=== PATIENT | female | born 1950 | race Caucasian/White ===

== ENCOUNTER 2023-09-10 17:28 | Inpatient (IN) | payer MEDICARE, OTHER ==
[~2023-09-10] VITALS: Ht 162.6 cm; Wt 39.5 kg
[2023-09-10] MEDS ORDERED: LABE100T15 PO (17:49)
[2023-09-10] MEDS ORDERED: AMLO10TA4 PO (17:49)
[2023-09-10] MEDS ORDERED: PANT40TA2 PO (17:49)
[2023-09-10] MEDS ORDERED: MIRT-121 PO (17:49)
[2023-09-10] MEDS ORDERED: DULO60CA45 PO (17:49)
[2023-09-10] MEDS ORDERED: FURO-152 PO (17:49)
[2023-09-10] MEDS ORDERED: ACET-2605 PO (17:49)
[2023-09-10] MEDS ORDERED: ALPR0.5T8 PO (17:49)
[2023-09-10] MEDS: BLOOD SUGAR DIAGNOSTIC 1 EACH STRIP VI ONE (19:45)
[2023-09-10] MEDS ORDERED: MAGNESIUM HYDROXIDE 30 ML LIQUID UDC PO PRN (19:45)
[2023-09-10] MEDS ORDERED: MAG HYDROX/AL HYDROX/SIMETH 30 ML LIQUID UDC PO PRN (19:45)
[2023-09-10] MEDS: LORAZEPAM 0.5 MG TABLET PO PRN (20:42)
[2023-09-10] MEDS: ACETAMINOPHEN 325 MG TABLET PO PRN (20:43)
[2023-09-11 07:59] VITALS: BP 114/71; TEMP 97.8; O2SAT 96
[2023-09-11] MEDS: FUROSEMIDE 20 MG TABLET PO SCH (08:50)
[2023-09-11] MEDS: PANTOPRAZOLE SODIUM 40 MG TABLET.DR PO SCH (08:50)
[2023-09-11] MEDS: AMLODIPINE 10 MG TABLET PO SCH (08:51)
[2023-09-11] MEDS: LABETALOL HCL 200 MG TABLET PO SCH (08:55)
[2023-09-11] MEDS ORDERED: LABETALOL HCL 100 MG TABLET PO SCH (09:00)
[2023-09-11] MEDS: DULOXETINE 30 MG CAPSULE.DR PO SCH (14:08)
[2023-09-11 15:19] VITALS: BP 101/54; TEMP 98; O2SAT 96
[2023-09-11 20:00] VITALS: BP 95/51; TEMP 97.7; O2SAT 97
[2023-09-11] MEDS: MIRTAZAPINE 15 MG TABLET PO SCH (21:17)
[2023-09-12 02:07] VITALS: BP 137/79
[2023-09-12] MEDS: ZOLPIDEM 5 MG TABLET PO PRN (02:11)
[2023-09-12 08:22] VITALS: BP 113/56; TEMP 98.4; O2SAT 98
[2023-09-12] MEDS: ENSURE ENLIVE (VAN) 240 ML LIQUID PO SCH (12:35)
[2023-09-12 17:00] VITALS: BP 128/87; TEMP 98.3; O2SAT 97
[2023-09-12] MEDS: ARGININE/GLUTAMINE/CALCIUM BMB 1 EACH POWD.PACK PO SCH (17:00)
[2023-09-12] MEDS: LORAZEPAM 0.5 MG TABLET PO PRN (21:15)
[2023-09-12 22:42] VITALS: BP 97/53; TEMP 98.1
[2023-09-12 22:45] VITALS: BP 97/53; TEMP 98.1; O2SAT 97
[2023-09-13 08:32] VITALS: BP 126/55; TEMP 98.3; O2SAT 97
[2023-09-13 15:57] VITALS: BP 128/59; TEMP 98.1; O2SAT 98
[2023-09-13] MEDS ORDERED: LORAZEPAM 1 MG TABLET PO PRN (17:00)
[2023-09-13 19:59] VITALS: BP 132/56; TEMP 98.1; O2SAT 96
[2023-09-14 07:43] VITALS: BP 127/65; TEMP 97.8; O2SAT 96
[2023-09-14 15:53] VITALS: BP 155/85; TEMP 98; O2SAT 97
[2023-09-14] MEDS ORDERED: VANCOMYCIN IV 1,000 MG in IV DEXTROSE 5% 250 ML IV SCH (16:15)
[2023-09-14] MEDS ORDERED: CEFTRIAXONE 1 G in IV DEXTROSE 5% 100 ML IV SCH (16:15)
[2023-09-14] MEDS ORDERED: LORA-259 PO (17:30)
[2023-09-14] MEDS ORDERED: VANC1PIG IV (17:30)
[2023-09-14] MEDS ORDERED: CEFT1VIA15 IV (17:30)
[2023-09-14] MEDS ORDERED: DULO30CA2 PO (17:30)
[2023-09-14] MEDS ORDERED: ZOLP5TAB2 PO (17:30)
[2023-09-14] MEDS ORDERED: MIRT-93 PO (17:30)
[2023-09-14 19:43] VITALS: BP 136/71; TEMP 98.1; O2SAT 96
== END 2023-09-14 21:52 | disposition short-term general hospital (02) | DRG 885 ==
LOC: ER 17:37 → GPS 18:30
PROVIDERS: ADMIT Psychiatry & Neurology Psychiatry; ATTEND Internal Medicine
DX: F33.2 Major depressive disorder, recurrent severe without psychotic features (principal); I11.0 Hypertensive heart disease with heart failure; M86.8X7 Other osteomyelitis, ankle and foot; R45.851 Suicidal ideations; F03.93 Unspecified dementia, unspecified severity, with mood disturbance; L97.522 Non-pressure chronic ulcer of other part of left foot with fat layer exposed; G89.4 Chronic pain syndrome; F11.14 Opioid abuse with opioid-induced mood disorder; Z91.81 History of falling; F41.9 Anxiety disorder, unspecified; S92.512A Displaced fracture of proximal phalanx of left lesser toe(s), initial encounter for closed fracture; X58.XXXA Exposure to other specified factors, initial encounter; Y93.9 Activity, unspecified; Y92.89 Other specified places as the place of occurrence of the external cause; L08.9 Local infection of the skin and subcutaneous tissue, unspecified; M62.81 Muscle weakness (generalized); I50.9 Heart failure, unspecified; Z79.899 Other long term (current) drug therapy
CPT/HCPCS: 36415; 70450; 73630; 98960

== ENCOUNTER 2023-09-14 21:53 | Inpatient (IN) | payer MEDICARE, OTHER ==
[~2023-09-14] VITALS: Ht 162.6 cm; Wt 40.8 kg
[~2023-09-14 21:53] MED LIST: ACET-2605 PO; AMLO10TA4 PO; CEFT1VIA15 IV; DULO30CA2 PO; FURO-152 PO; LABE100T15 PO; LORA-259 PO; MIRT-93 PO; PANT40TA2 PO; VANC1PIG IV; ZOLP5TAB2 PO
[2023-09-14 23:00] VITALS: BP 139/72; TEMP 97.7; O2SAT 99
[2023-09-15] MEDS ORDERED: CEFTRIAXONE 1 G VIAL ONE ×2 (00:02→00:03)
[2023-09-15] MEDS ORDERED: VANCOMYCIN 1000 MG VIAL ONE (00:02)
[2023-09-15] MEDS: CEFTRIAXONE 1 G in IV DEXTROSE 5% 50 ML IV ONE (02:49)
[2023-09-15] MEDS: VANCOMYCIN HCL 750 MG in IV DEXTROSE 5% 250 ML IV ONE (04:04)
[2023-09-15 07:01] VITALS: BP 114/60; TEMP 99; O2SAT 95
[2023-09-15] MEDS ORDERED: ONDANSETRON 4 MG/2 ML VIAL IV PRN (08:30)
[2023-09-15] MEDS ORDERED: ZOLPIDEM 5 MG TABLET PO PRN (08:30)
[2023-09-15] MEDS ORDERED: HYDROCODONE/APAP 5-325MG TABLET PO PRN (08:30)
[2023-09-15] MEDS ORDERED: ACETAMINOPHEN 325 MG TABLET PO PRN (08:30)
[2023-09-15 09:00] VITALS: BP 105/57; TEMP 98.5
[2023-09-15] MEDS ORDERED: PANTOPRAZOLE SODIUM 40 MG TABLET.DR PO SCH (09:00)
[2023-09-15 09:10] LABS: BASOPHILS # (AUTO) 0.1 K/UL (0.0-0.2); BASOPHILS % (AUTO) 1.1 % (0.0-2.0); EOSINOPHILS # (AUTO) 0.1 K/uL (0.0-0.7); HEMATOCRIT 35.9 % (31.2-41.9); LYMPHOCYTES # (AUTO) 1.7 K/uL (0.8-4.8); LYMPHOCYTES % (AUTO) 25.9 % (20.5-51.5); MEAN CORPUSCULAR HGB CONC 33 g/dL (32.3-35.6); MEAN CORPUSCULAR VOLUME 89.7 fL (75.5-95.3); MONOCYTES # (AUTO) 0.5 K/uL (0.1-1.30); MONOCYTES % (AUTO) 7.8 % (0.0-11.0); NEUTROPHILS % (AUTO) 63.2 % (38.5-71.5); PLATELET COUNT (AUTO) 363 K/uL (179-408); RED CELL DISTRIBUTION WIDTH 13.6 % (12.3-17.7); WHITE BLOOD COUNT (AUTO) 6.4 K/uL (3.8-11.8)
[2023-09-15 09:11] LABS: DIFFERENTIAL COMMENT 1
[2023-09-15 09:20] LABS: CALCIUM 9.1 mg/dL (8.5-10.1); CREATININE 1.2 mg/dL (0.6-1.3)
[2023-09-15 09:34] LABS: THYROID STIMULATING HORMONE 1.029 mIU/mL (0.358-3.740)
[2023-09-15] MEDS: FUROSEMIDE 20 MG TABLET PO SCH (09:47)
[2023-09-15] MEDS: ZINC SULFATE 220 MG CAPSULE PO SCH (09:48)
[2023-09-15 09:51] LABS: ALBUMIN 3.1 g/dL (3.4-5.0); BILIRUBIN,TOTAL 0.6 mg/dL (0.2-1.0); MAGNESIUM 1.6 mg/dL (1.8-2.4)
[2023-09-15 09:58] LABS: ERYTHROCYTE SEDIMENTATION RATE 59 MM/HR (0-20)
[2023-09-15] MEDS: DULOXETINE 30 MG CAPSULE.DR PO SCH (10:24)
[2023-09-15] MEDS: ASCORBIC ACID 500 MG TABLET PO SCH (10:25)
[2023-09-15] MEDS: LABETALOL HCL 100 MG TABLET PO SCH (10:25)
[2023-09-15] MEDS: ASPIRIN EC 81 MG TABLET.DR PO SCH (10:25)
[2023-09-15] MEDS: AMLODIPINE 10 MG TABLET PO SCH (10:26)
[2023-09-15] MEDS: ENSURE WITH FIBER 237 ML LIQUID (CHOCOLATE) PO SCH (17:23)
[2023-09-15] MEDS: DOCUSATE SODIUM 250 MG CAPSULE PO SCH (21:00)
[2023-09-15] MEDS: MIRTAZAPINE 15 MG TABLET PO SCH (21:00)
[2023-09-15] MEDS: ATORVASTATIN 20 MG TABLET PO SCH (21:00)
[2023-09-15] MEDS ORDERED: VANCOMYCIN IV 1,000 MG in IV DEXTROSE 5% 250 ML IV SCH (23:00)
[2023-09-15] MEDS: CEFTRIAXONE 1 G in IV DEXTROSE 5% 50 ML IV SCH (23:23)
[2023-09-16 06:00] VITALS: BP 117/68; TEMP 98.7
[2023-09-16] MEDS: PANTOPRAZOLE SODIUM 40 MG TABLET.DR PO SCH (09:50)
[2023-09-16] MEDS: CADEXOMER IODINE 40 GM TUBE TOP SCH (11:53)
[2023-09-16] MEDS: LORAZEPAM 1 MG TABLET PO PRN (15:30)
[2023-09-16] MEDS: VANCOMYCIN HCL 750 MG in IV DEXTROSE 5% 250 ML IV SCH (16:25)
[2023-09-16] MEDS: DOCUSATE SODIUM 100 MG CAPSULE PO SCH (21:00)
[2023-09-17 06:57] LABS: BASOPHILS # (AUTO) 0.1 K/UL (0.0-0.2); BASOPHILS % (AUTO) 1.8 % (0.0-2.0); EOSINOPHILS # (AUTO) 0.1 K/uL (0.0-0.7); EOSINOPHILS % (AUTO) 1.8 % (0.0-7.0); HEMATOCRIT 35.3 % (31.2-41.9); HEMOGLOBIN 11.6 g/dL (10.9-14.3); LYMPHOCYTES # (AUTO) 1.9 K/uL (0.8-4.8); LYMPHOCYTES % (AUTO) 32.3 % (20.5-51.5); MEAN CORPUSCULAR HEMOGLOBIN 29.7 uug (24.7-32.8); MEAN CORPUSCULAR HGB CONC 33 g/dL (32.3-35.6); MEAN CORPUSCULAR VOLUME 90.2 fL (75.5-95.3); MONOCYTES # (AUTO) 0.4 K/uL (0.1-1.30); MONOCYTES % (AUTO) 6.5 % (0.0-11.0); NEUTROPHILS # (AUTO) 3.3 K/uL (1.8-8.9); NEUTROPHILS % (AUTO) 57.6 % (38.5-71.5); PLATELET COUNT (AUTO) 377 K/uL (179-408); RED BLOOD CELL COUNT(AUTO) 3.91 MIL/uL (3.63-4.92); RED CELL DISTRIBUTION WIDTH 13.7 % (12.3-17.7); WHITE BLOOD COUNT (AUTO) 5.8 K/uL (3.8-11.8)
[2023-09-17 06:59] LABS: CALCIUM 9.1 mg/dL (8.5-10.1); CARBON DIOXIDE 26 mmol/L (21-32); CHLORIDE 103 mmol/L (98-107); CREATININE 1.4 mg/dL (0.6-1.3); GLUCOSE 103 mg/dL (74-106); MAGNESIUM 1.6 mg/dL (1.8-2.4); PHOSPHOROUS 2.9 mg/dL (2.5-4.9); POTASSIUM 3.7 mmol/L (3.5-5.1); SODIUM SERUM 139 mmol/L (136-145); UREA NITROGEN, BLOOD 35 mg/dL (7-18)
[2023-09-17 07:04] LABS: DIFFERENTIAL COMMENT 1
[2023-09-17 08:00] VITALS: BP 108/63; TEMP 98.3; O2SAT 92
[2023-09-17] MEDS: ESCITALOPRAM OXALATE 10 MG TABLET PO SCH (09:37)
[2023-09-17] MEDS: MAGNESIUM SULFATE/D5W 100 ML IV SCH (09:39)
[2023-09-17] MEDS ORDERED: Lactose-Free Food/Fiber PO (15:07)
[2023-09-17] MEDS ORDERED: ATOR20TA PO (15:07)
[2023-09-17] MEDS ORDERED: ASCO500T21 PO (15:07)
[2023-09-17] MEDS ORDERED: MIRT-93 PO (15:07)
[2023-09-17] MEDS ORDERED: ESCI-9 PO (15:07)
[2023-09-17] MEDS ORDERED: FURO-152 PO (15:07)
[2023-09-17] MEDS ORDERED: DOCU-141 PO (15:07)
[2023-09-17] MEDS ORDERED: LABE100T15 PO (15:07)
[2023-09-17] MEDS ORDERED: HYDR-3972 PO (15:07)
[2023-09-17] MEDS ORDERED: LORA-259 PO (15:07)
[2023-09-17] MEDS ORDERED: ZOLP5TAB2 PO (15:07)
[2023-09-17] MEDS ORDERED: ZINC1CAP3 PO (15:07)
[2023-09-17] MEDS ORDERED: AMOX-430 PO (15:07)
[2023-09-17] MEDS ORDERED: ACID1TAB4 PO (15:07)
[2023-09-17] MEDS ORDERED: ACET325T53 PO (15:07)
[2023-09-17] MEDS ORDERED: CADE40GE2 TOP (15:07)
[2023-09-17] MEDS ORDERED: ASPI-618 PO (15:07)
[2023-09-17 15:52] VITALS: BP 95/55; TEMP 98.3; O2SAT 92
== END 2023-09-17 17:40 | DRG 539 ==
LOC: MEDSURG3 21:53
PROVIDERS: ADMIT Internal Medicine; ATTEND Internal Medicine
DX: M86.8X7 Other osteomyelitis, ankle and foot (principal); E43 Unspecified severe protein-calorie malnutrition; L97.526 Non-pressure chronic ulcer of other part of left foot with bone involvement without evidence of necrosis; F33.2 Major depressive disorder, recurrent severe without psychotic features; Z68.1 Body mass index [BMI] 19.9 or less, adult; F11.20 Opioid dependence, uncomplicated; L03.032 Cellulitis of left toe; R62.7 Adult failure to thrive; F17.210 Nicotine dependence, cigarettes, uncomplicated; M20.12 Hallux valgus (acquired), left foot; E78.5 Hyperlipidemia, unspecified; S92.512A Displaced fracture of proximal phalanx of left lesser toe(s), initial encounter for closed fracture; X58.XXXA Exposure to other specified factors, initial encounter; Y92.89 Other specified places as the place of occurrence of the external cause; I73.9 Peripheral vascular disease, unspecified; G31.84 Mild cognitive impairment of uncertain or unknown etiology; K21.9 Gastro-esophageal reflux disease without esophagitis; I11.0 Hypertensive heart disease with heart failure; Z79.899 Other long term (current) drug therapy; N28.9 Disorder of kidney and ureter, unspecified; R60.0 Localized edema; G89.29 Other chronic pain; I11.9 Hypertensive heart disease without heart failure; I50.9 Heart failure, unspecified
CPT/HCPCS: 36415; 83550; 83735; 84100; 84443; 85025; 85651; A4606; A4663; G0378; J0696; J3370; J3475; J7040; J7050

== ENCOUNTER 2023-09-22 17:32 | Inpatient (IN) | payer MEDICARE, OTHER ==
[~2023-09-22] VITALS: Ht 162.6 cm; Wt 48.1 kg
[~2023-09-22 17:32] MED LIST changes: -ACET-2605 PO; +ACET325T53 PO; +ACID1TAB4 PO; -AMLO10TA4 PO; +AMOX-430 PO; +ASCO500T21 PO; +ASPI-618 PO; +ATOR20TA PO; +CADE40GE2 TOP; -CEFT1VIA15 IV; +DOCU-141 PO; -DULO30CA2 PO; +ESCI-9 PO; +HYDR-3972 PO; +Lactose-Free Food/Fiber PO; -VANC1PIG IV; +ZINC1CAP3 PO
[2023-09-22] MEDS ORDERED: PANT40TA49 PO (17:45)
[2023-09-22 17:50] LABS: BASOPHILS % (AUTO) 0.5 % (0.0-2.0); EOSINOPHILS # (AUTO) 0.1 K/uL (0.0-0.7); EOSINOPHILS % (AUTO) 1.4 % (0.0-7.0); HEMOGLOBIN 10.9 g/dL (10.9-14.3); LYMPHOCYTES # (AUTO) 1.7 K/uL (0.8-4.8); LYMPHOCYTES % (AUTO) 18.9 % (20.5-51.5); MEAN CORPUSCULAR HEMOGLOBIN 30.1 uug (24.7-32.8); MEAN CORPUSCULAR HGB CONC 33 g/dL (32.3-35.6); MEAN CORPUSCULAR VOLUME 90.9 fL (75.5-95.3); MONOCYTES # (AUTO) 0.6 K/uL (0.1-1.30); MONOCYTES % (AUTO) 6.4 % (0.0-11.0); NEUTROPHILS # (AUTO) 6.5 K/uL (1.8-8.9); NEUTROPHILS % (AUTO) 72.8 % (38.5-71.5); PLATELET COUNT (AUTO) 342 K/uL (179-408); RED BLOOD CELL COUNT(AUTO) 3.63 MIL/uL (3.63-4.92); RED CELL DISTRIBUTION WIDTH 13.9 % (12.3-17.7); WHITE BLOOD COUNT (AUTO) 8.9 K/uL (3.8-11.8)
[2023-09-22 18:02] LABS: CALCIUM 9.2 mg/dL (8.5-10.1); CARBON DIOXIDE 24 mmol/L (21-32); CHLORIDE 105 mmol/L (98-107); CREATININE 1.4 mg/dL (0.6-1.3); GLUCOSE 99 mg/dL (74-106); POTASSIUM 4.5 mmol/L (3.5-5.1); SODIUM SERUM 140 mmol/L (136-145); UREA NITROGEN, BLOOD 38 mg/dL (7-18)
[2023-09-22 18:03] LABS: ETHANOL < 3 MG/DL (0-10)
[2023-09-22 18:06] LABS: ALANINE AMINOTRANSFERASE 18 U/L (14-59); ALKALINE PHOSPHATASE 92 U/L (50-136); ASPARTATE AMINOTRANSFERASE 8 U/L (15-37); BILIRUBIN,DIRECT 0.1 mg/dL (0.0-0.2); BILIRUBIN,TOTAL 0.3 mg/dL (0.2-1.0); TOTAL PROTEIN, SERUM 6.8 g/dL (6.4-8.2)
[2023-09-22 18:11] LABS: ACETAMINOPHEN < 2.0 ug/mL (10-30)
[2023-09-22 18:26] LABS: *BILIRUBIN,URIN NEGATIVE (NEGATIVE); *BLOOD, URINE NEGATIVE (NEGATIVE); *CLARITY,URINE CLEAR (CLEAR); *COLOR,URINE YELLOW (YELLOW); *KETONES,URINE NEGATIVE (NEGATIVE); *PROTEIN,URINE TRACE (NEGATIVE); *UROBILINOGEN,URINE 0.2 E.U./dl (NORMAL); LEUKOCYTE ESTERASE ,URINE NEGATIVE (NEGATIVE); NITRITE, URINE NEGATIVE (NEGATIVE); UGLUCOSE NEGATIVE (NEGATIVE)
[2023-09-22 18:27] LABS: RBC,URINE 0-3 /HPF (0-3); WBC,URINE 0-3 /HPF (0-3)
[2023-09-22 18:33] LABS: *AMPHETAMINE, URINE NEGATIVE (NEGATIVE); *BARBITURATE, URINE NEGATIVE (NEGATIVE); *BENZODIAZEPINE, URINE NEGATIVE (NEGATIVE); *CANNABINOID, URINE NEGATIVE (NEGATIVE); *COCCAINE, URINE NEGATIVE (NEGATIVE); *OPIATE, URINE NEGATIVE (NEGATIVE); *PHENCYCLIDINE SCREEN,URINE NEGATIVE (NEGATIVE); FENTANYL, URINE NEGATIVE (NEGATIVE)
[2023-09-22 21:44] VITALS: BP 173/84; TEMP 98.1; O2SAT 100
[2023-09-22] MEDS ORDERED: MAG HYDROX/AL HYDROX/SIMETH 30 ML LIQUID UDC PO PRN (21:45)
[2023-09-22] MEDS ORDERED: MAGNESIUM HYDROXIDE 30 ML LIQUID UDC PO PRN (21:45)
[2023-09-22] MEDS: LORAZEPAM 0.5 MG TABLET PO PRN (21:58)
[2023-09-22] MEDS: BLOOD SUGAR DIAGNOSTIC 1 EACH STRIP VI ONE (21:58)
[2023-09-22] MEDS ORDERED: HYDROCODONE/APAP 5-325MG TABLET PO PRN (22:15)
[2023-09-22] MEDS ORDERED: LORAZEPAM 1 MG TABLET PO PRN (22:15)
[2023-09-22] MEDS ORDERED: ZOLPIDEM 5 MG TABLET PO PRN (22:15)
[2023-09-22] MEDS ORDERED: ACETAMINOPHEN 325 MG TABLET-SA PATIENTS-PAIN ONLY PO PRN (22:15)
[2023-09-22 23:01] VITALS: BP 154/80; TEMP 98.1; O2SAT 96
[2023-09-23 07:30] VITALS: BP 141/64; TEMP 98; O2SAT 98
[2023-09-23] MEDS ORDERED: Medication Not On Formulary EA ([Lactose-Free Food/Fiber] 237 ML) PO SCH (09:00)
[2023-09-23] MEDS ORDERED: PANTOPRAZOLE SODIUM 40 MG TABLET.DR PO SCH (09:00)
[2023-09-23] MEDS ORDERED: ESCITALOPRAM OXALATE 10 MG TABLET PO SCH (09:00)
[2023-09-23 10:07] LABS: HEMATOCRIT 33.9 % (31.2-41.9); HEMOGLOBIN 11.3 g/dL (10.9-14.3); MEAN CORPUSCULAR HEMOGLOBIN 30.5 uug (24.7-32.8); MEAN CORPUSCULAR HGB CONC 33 g/dL (32.3-35.6); MEAN CORPUSCULAR VOLUME 91.7 fL (75.5-95.3); RED BLOOD CELL COUNT(AUTO) 3.69 MIL/uL (3.63-4.92); RED CELL DISTRIBUTION WIDTH 13.5 % (12.3-17.7); WHITE BLOOD COUNT (AUTO) 7.6 K/uL (3.8-11.8)
[2023-09-23 10:08] LABS: BASOPHILS # (AUTO) 0.1 K/UL (0.0-0.2); EOSINOPHILS # (AUTO) 0.2 K/uL (0.0-0.7); EOSINOPHILS % (AUTO) 3.1 % (0.0-7.0); LYMPHOCYTES # (AUTO) 2.3 K/uL (0.8-4.8); LYMPHOCYTES % (AUTO) 30.4 % (20.5-51.5); MONOCYTES # (AUTO) 0.5 K/uL (0.1-1.30); NEUTROPHILS # (AUTO) 4.4 K/uL (1.8-8.9); NEUTROPHILS % (AUTO) 58.5 % (38.5-71.5); PLATELET COUNT (AUTO) 346 K/uL (179-408)
[2023-09-23] MEDS: ASCORBIC ACID 500 MG TABLET PO SCH (10:35)
[2023-09-23] MEDS: PANTOPRAZOLE SODIUM 40 MG TABLET.DR PO SCH (10:35)
[2023-09-23] MEDS: ACIDOPHILUS/BULGARICUS CHEW TAB PO SCH (10:35)
[2023-09-23] MEDS: AMOXICILLIN-CLAVUL 875-125MG TABLET PO SCH (10:36)
[2023-09-23] MEDS: LABETALOL HCL 100 MG TABLET PO SCH (10:36)
[2023-09-23] MEDS: ASPIRIN EC 81 MG TABLET.DR PO SCH (10:37)
[2023-09-23] MEDS: CADEXOMER IODINE 40 GM TUBE TOP SCH (10:37)
[2023-09-23] MEDS: ZINC SULFATE 220 MG CAPSULE PO SCH (10:37)
[2023-09-23 12:15] LABS: CALCIUM 9.4 mg/dL (8.5-10.1); CARBON DIOXIDE 29 mmol/L (21-32); CHLORIDE 104 mmol/L (98-107); GLUCOSE 88 mg/dL (74-106); POTASSIUM 4.2 mmol/L (3.5-5.1); SODIUM SERUM 141 mmol/L (136-145)
[2023-09-23 12:16] LABS: CREATININE 1.1 mg/dL (0.6-1.3); MAGNESIUM 1.7 mg/dL (1.8-2.4); PHOSPHOROUS 3.7 mg/dL (2.5-4.9); TRIGLYCERIDES 162 MG/DL (30-150); UREA NITROGEN, BLOOD 31 mg/dL (7-18)
[2023-09-23 12:17] LABS: CHOLESTEROL 154 mg/dL (<200); HDL CHOLESTEROL 55 mg/dL (40-60)
[2023-09-23 14:12] LABS: THYROID STIMULATING HORMONE 1.228 mIU/mL (0.358-3.740)
[2023-09-23 15:24] VITALS: BP 124/53; TEMP 98; O2SAT 99
[2023-09-23] MEDS: OLANZAPINE 2.5 MG TABLET PO SCH (17:29)
[2023-09-23] MEDS: MAGNESIUM OXIDE 400 MG TABLET PO ONE (17:59)
[2023-09-23 20:00] VITALS: BP 130/55; TEMP 97.5; O2SAT 97
[2023-09-23] MEDS: MIRTAZAPINE 15 MG TABLET PO SCH (20:29)
[2023-09-23] MEDS: DOCUSATE SODIUM 100 MG CAPSULE PO SCH (20:29)
[2023-09-23] MEDS: ATORVASTATIN 20 MG TABLET PO SCH (20:30)
[2023-09-23] MEDS ORDERED: DOCUSATE SODIUM 100 MG CAPSULE PO SCH (21:00)
[2023-09-24 07:55] VITALS: BP 136/63; TEMP 98.2; O2SAT 100
[2023-09-24] MEDS: LABETALOL HCL 100 MG TABLET PO SCH (09:22)
[2023-09-24 15:10] VITALS: BP 109/66; TEMP 98; O2SAT 98
[2023-09-24 20:00] VITALS: BP 129/61; TEMP 98.4; O2SAT 100
[2023-09-24] MEDS: ZOLPIDEM 5 MG TABLET PO PRN (23:03)
[2023-09-25 07:58] VITALS: BP 134/47; TEMP 97.8; O2SAT 100
[2023-09-25 15:18] VITALS: BP 132/74; TEMP 98.2; O2SAT 100
[2023-09-25 20:00] VITALS: BP 101/43; TEMP 98.5; O2SAT 96
[2023-09-26 07:30] VITALS: BP 134/49; TEMP 98.3; O2SAT 98
[2023-09-26] MEDS: ENSURE ENLIVE (VAN) 240 ML LIQUID PO SCH (16:35)
[2023-09-26 16:38] VITALS: BP 95/45; TEMP 97.9; O2SAT 100
[2023-09-26] MEDS: ACETAMINOPHEN 325 MG TABLET PO PRN (16:49)
[2023-09-26 20:00] VITALS: BP 101/57; TEMP 98.2; O2SAT 99
[2023-09-27 07:59] VITALS: BP 148/65; TEMP 98.6; O2SAT 96
[2023-09-27 16:39] VITALS: BP 107/77; TEMP 98.5; O2SAT 96
[2023-09-27 20:13] VITALS: BP 119/56; TEMP 98.1; O2SAT 96
[2023-09-28 08:24] VITALS: BP 155/67; TEMP 97.4; O2SAT 98
[2023-09-28] MEDS: OLANZAPINE 2.5 MG TABLET PO SCH (08:28)
[2023-09-28 16:13] VITALS: BP 154/49; TEMP 97.4; O2SAT 98
[2023-09-28 19:48] VITALS: BP 148/60; TEMP 97.8; O2SAT 96
[2023-09-28] MEDS: OLANZAPINE 5 MG TABLET PO SCH (20:44)
[2023-09-29 08:26] VITALS: BP 150/80; TEMP 98; O2SAT 98
[2023-09-29] MEDS: QUETIAPINE FUMARATE 25 MG TABLET PO SCH ×2 (09:45→21:04)
[2023-09-29 15:46] VITALS: BP 128/53; TEMP 98; O2SAT 99
[2023-09-29 20:09] VITALS: BP 158/59; TEMP 98.1; O2SAT 98
[2023-09-30 07:59] VITALS: BP 119/71; TEMP 98; O2SAT 98
[2023-09-30 08:44] VITALS: BP 119/71
== END 2023-09-30 13:00 | DRG 885 ==
LOC: ER 17:34 → GPS 21:20
PROVIDERS: ADMIT Psychiatry & Neurology Psychiatry; ATTEND Student in an Organized Health Care Education/Training Program
DX: F33.3 Major depressive disorder, recurrent, severe with psychotic symptoms (principal); N17.0 Acute kidney failure with tubular necrosis; M86.8X7 Other osteomyelitis, ankle and foot; E44.0 Moderate protein-calorie malnutrition; Z68.1 Body mass index [BMI] 19.9 or less, adult; E44.1 Mild protein-calorie malnutrition; F03.94 Unspecified dementia, unspecified severity, with anxiety; D61.818 Other pancytopenia; R26.2 Difficulty in walking, not elsewhere classified; K21.9 Gastro-esophageal reflux disease without esophagitis; J44.9 Chronic obstructive pulmonary disease, unspecified; E78.5 Hyperlipidemia, unspecified; Z87.39 Personal history of other diseases of the musculoskeletal system and connective tissue; S92.512D Displaced fracture of proximal phalanx of left lesser toe(s), subsequent encounter for fracture with routine healing; X58.XXXD Exposure to other specified factors, subsequent encounter; I11.9 Hypertensive heart disease without heart failure; Z79.82 Long term (current) use of aspirin; Z79.899 Other long term (current) drug therapy; F11.11 Opioid abuse, in remission; Z79.2 Long term (current) use of antibiotics
CPT/HCPCS: 36415; 83735; 84100; 84443; 85025; G0480